=== PATIENT | male | born 1930 | race Caucasian/White ===

== ENCOUNTER 2017-01-24 08:38 | Emergency (ER) | payer MEDICARE ==
[~2017-01-24 08:38] MED LIST: ARICEPT 5MG TABL5 MG PO; CARTIA XT120 MG PO; DIAZEPAM 5MG TAB5 MG PO; FLOMAX0.4 MG PO; FLUOXETINE HCL20 MG PO; IMDUR 30MG TABL30 MG PO; LEVAQUIN250 MG PO; PROSCAR5 MG PO; SYNTHROID50 MCG PO
[2017-01-24 09:03] LABS: BASOPHIL 0.6 % (0-2); EOSINOPHIL 2.4 % (0-7); HCT 49.2 % (42.0-52.0); HGB 16.8 g/dl (13.2-18.0); LYMPHOCYTE 36.2 % (15-48); MCH 29.6 pg (25.0-31.0); MCHC 34.1 g/dL (32.0-36.0); MCV 86.8 fL (78.0-100.0); MONOCYTE 10.3 % (0-12); MPV 10.5 fL (6.0-9.5); NEUTROPHIL 50.5 % (41-80); PLT 222 K/uL (150-400); RBC 5.67 M/uL (4.70-6.00); RDW 13.8 % (11.5-14.0); WBC 8.7 K/uL (4.0-10.5)
[2017-01-24 09:07] LABS: BILIRUBIN NEGATIVE (NEGATIVE); BLOOD NEGATIVE Ery/uL (NEGATIVE); CLARITY CLEAR (CLEAR); COLOR YELLOW (YELLOW); GLUCOSE (U) NORMAL (NORMAL); KETONE (U) NEGATIVE (NEGATIVE); LEUKOCYTES NEGATIVE Leu/uL (NEGATIVE); NITRITE NEGATIVE (NEGATIVE); PROTEIN NEGATIVE (NEGATIVE); SPECIFIC GRAVITY 1.015 (1.001-1.030); UROBILINOGEN 0.2 mg/dL (0.2-1.0)
[2017-01-24 09:18] LABS: ALBUMIN 4.3 g/dL (3.4-4.8); BILIRUBIN - TOTAL 0.4 mg/dL (0.1-1.0); CREATININE 1.3 mg/dL (0.7-1.2); GLOBULIN (CALCULATION) 2.5 g/dL (2.2-4.2); LACTIC ACID 1.8 mmol/L (0.5-2.2); POTASSIUM 3.9 mmol/L (3.5-5.1); TOTAL PROTEIN 6.8 g/dL (6.4-8.3)
== END 2017-01-24 11:30 | disposition home or self-care (01) ==
LOC: FER 08:38
PROVIDERS: Internal Medicine
DX: F41.0 Panic disorder [episodic paroxysmal anxiety] (principal); R51 Headache; R05 Cough; R82.90 Unspecified abnormal findings in urine; I10 Essential (primary) hypertension; J44.9 Chronic obstructive pulmonary disease, unspecified; K21.9 Gastro-esophageal reflux disease without esophagitis; Z86.711 Personal history of pulmonary embolism; Z88.0 Allergy status to penicillin; Z95.0 Presence of cardiac pacemaker
CPT/HCPCS: 36415; 36600; 70450; 71010; 80053; 81003; 82803; 83605; 84484; 85025; 87040; 87088; 93005; 94640; J2060

== ENCOUNTER 2017-04-30 08:20 | Emergency (ER) | payer MEDICARE ==
[2017-04-30 09:28] LABS: BASOPHIL 1.2 % (0-2); EOSINOPHIL 4.8 % (0-7); HCT 51.6 % (42.0-52.0); HGB 17.7 g/dl (13.2-18.0); LYMPHOCYTE 53.8 % (15-48); MCH 29.7 pg (25.0-31.0); MCHC 34.3 g/dL (32.0-36.0); MCV 86.7 fL (78.0-100.0); MONOCYTE 12.1 % (0-12); MPV 10.9 fL (6.0-9.5); NEUTROPHIL 28.1 % (41-80); PLT 249 K/uL (150-400); RBC 5.95 M/uL (4.70-6.00); RDW 13.4 % (11.5-14.0); WBC 6.5 K/uL (4.0-10.5)
[2017-04-30 09:39] LABS: INR 0.94 (0.9-1.2); PROTHROMBIN TIME 12.2 SECONDS (11.7-14.0)
[2017-04-30 09:40] LABS: PTT 27.5 SECONDS (23.2-31.4)
[2017-04-30 09:46] LABS: ALBUMIN 4.2 g/dL (3.4-4.8); BILIRUBIN - TOTAL 0.7 mg/dL (0.1-1.0); CREATININE 1.2 mg/dL (0.7-1.2); GLOBULIN (CALCULATION) 3.1 g/dL (2.2-4.2); POTASSIUM 3.9 mmol/L (3.5-5.1); TOTAL PROTEIN 7.3 g/dL (6.4-8.3)
[2017-04-30 09:51] LABS: BILIRUBIN NEGATIVE (NEGATIVE); BLOOD NEGATIVE Ery/uL (NEGATIVE); CLARITY CLEAR (CLEAR); COLOR STRAW (YELLOW); GLUCOSE (U) NORMAL (NORMAL); KETONE (U) NEGATIVE (NEGATIVE); LEUKOCYTES NEGATIVE Leu/uL (NEGATIVE); NITRITE NEGATIVE (NEGATIVE); PROTEIN NEGATIVE (NEGATIVE); UROBILINOGEN 0.2 mg/dL (0.2-1.0); pH 8.5 (5.0-9.0)
[2017-04-30 09:57] LABS: LACTIC ACID 2.5 mmol/L (0.5-2.2)
== END 2017-04-30 12:53 | disposition home or self-care (01) ==
LOC: FER 08:20
PROVIDERS: Emergency Medicine
DX: R33.9 Retention of urine, unspecified (principal); R53.1 Weakness; R10.30 Lower abdominal pain, unspecified; R51 Headache; R82.90 Unspecified abnormal findings in urine; K21.9 Gastro-esophageal reflux disease without esophagitis; E03.9 Hypothyroidism, unspecified; N40.0 Benign prostatic hyperplasia without lower urinary tract symptoms; Z88.0 Allergy status to penicillin; Z95.0 Presence of cardiac pacemaker
CPT/HCPCS: 36415; 70450; 71010; 80053; 81003; 83605; 84484; 85025; 85610; 85730; 87040; 87088; 93005; J2060